=== PATIENT | female | born 1950 | race Caucasian/White ===

== ENCOUNTER 2016-12-28 15:29 | Emergency (ER) | payer MEDICARE, OTHER ==
--- NOTE | 2016-12-28 18:02 | REP ---
CT of the brain without IV contrast: There are no comparisons. The patients head is positioned asymmetrically in the scanning gantry. There is no subdural or epidural hematoma. There is no hemorrhage, edema, mass effect or midline shift. The cortical stripe is unremarkable. The ventricles and sulci are mildly enlarged compatible with mild diffuse volume loss. The visualized paranasal sinuses and mastoid air cells are clear. Impression: Essentially negative CT study of the brain except for mild diffuse volume loss. Signed by Felix Juarez MD 12/28/2016 05:54 P
--- NOTE | 2016-12-28 18:33 | EDDOCDS ---
Nurse's Notes [facility] Name: Shikha Del Rio Age: 66 yrs Sex: Female : 1950 Arrival Date: 12/28/2016 Time: 15:29 Bed TR8 Private MD: Rain Martinez Diagnosis: Unspecified injury of head Presentation: 12/28 15:35 Presenting complaint: Patient states: while at lunch and fell in parking lot. Cracked hs1 head on pavement. Patient states headache and pain in back of head. Adult Sepsis Screening: The patient does not have new or worsening altered mentation. Patient's respiratory rate is less than 22. Systolic blood pressure is greater than 100. Patient has a qSOFA score of 0- Negative Sepsis Screen. Suicide/Homicide risk assessment- the patient denies having any suicidal and/or homicidal ideations and does not present with any other emotional, behavioral or mental health complaints. Status: Patient is not a service parts coordinator or dependent. Transition of care: patient was not received from another setting of care. 15:35 Acuity: BEKAH Level 4 hs1 15:35 Method Of Arrival: Walkin/Carried/Asstd hs1 Triage Assessment: 15:37 General: Appears in no apparent distress, Behavior is appropriate for age, cooperative. hs1 Pain: Location: scalp Pain currently is 5 out of 10 on a pain scale. Musculoskeletal: Range of motion intact in all extremities. Historical: - Allergies: no known allergies; - Home Meds: 1. none - PMHx: none; - PSHx: cyst removal from left breast; ; - Social history: Smoking status: Patient states was never smoker of tobacco. No barriers to communication noted, The patient speaks fluent Bermudian, Speaks appropriately for age. - Family history: Not pertinent. - : The pt / caregiver states he / she is not on anticoagulants. Home medication list is obtained from the patient. - Exposure Risk Screening:: None identified. Screenin:27 Screening information is obtained from the patient. Fall risk: No risks identified. mk4 Assistance ADL's: requires no assistance with activities of daily living. Abuse/DV Screen: The patient / caregiver reports he/she is: not in a situation that causes fear, pain or injury. Nutritional screening: No deficits noted. Advance Directives: Currently, there is no health care proxy. There is no active DNR order. There is no living will. There is no Power of Plant Sciences Professor. Advance directive information has not previously been placed in an [facility] medical record. home support is adequate. Assessment: 16:30 General: Appears in no apparent distress. Neurological: Level of Consciousness is mk4 Oriented to person, place, time, Speech is normal, Facial symmetry appears normal, Pupils are PERRLA. Respiratory: No deficits noted. Airway is patent Respiratory effort is even, unlabored. Derm: Skin is intact, is healthy with good turgor. 17:30 General: Appears in no apparent distress. mk4 18:26 Reassessment: Patient appears in no apparent distress at this time. Patient denies pain mk4 at this time. Patient states feeling better. General: Appears in no apparent distress. Neurological: Level of Consciousness is awake, alert, Oriented to person, place, time, Speech is normal, Facial symmetry appears normal, Pupils are. Vital Signs: 15:31 BP 168 / 79; Pulse 75; Resp 18; Temp 97.4; Pulse Ox 95% ; Weight 68.04 kg; Height 5 ft. elp 4 in. (162.56 cm); 18:19 BP 153 / 85; Pulse 69; Resp 18; Temp 96.8(O); Pulse Ox 97% on R/A; Pain 0/10; dem1 15:31 Body Mass Index 25.75 (68.04 kg, 162.56 cm) el Vitals: 15:31 Log In Time: December 28, 2016 at 15:21. el ED Course: 15:30 Patient visited by Pat Peña PCA. elp 15:30 Rain Martinez is Private Physician. elp 15:30 Patient moved to Waiting elp 15:32 Patient visited by Pat Peña PCA. elp 15:32 Patient moved to Pre RCE elp 15:36 Triage Initiated hs1 16:28 Patient moved to Triage 1 mk4 16:43 Patient visited by Annie Shelby RN. mk4 16:47 [facility]. ke 16:47 Patient visited by Kelvin Garrett FNP. ke 16:47 Patient visited by Kelvin Garrett FNP. ke 16:59 Patient moved to TR2 dem1 17:19 Patient visited by Kelvin Garrett FNP. ke 18:00 Patient visited by Kelvin Garrett FNP. ke 18:11 Rain Martinez is Referral Physician. ke 18:11 Patient moved to PR / 25 jam1 18:14 CT Head Without Contrast Returned. EDMS 18:19 Patient visited by Char Zambrano. dem1 18:21 Patient moved to TR8 dem1 18:27 The patient / caregiver is instructed regarding the plan of care and ED course. mk4 18:28 No IV's were initiated during this patient's visit. No procedures done that require mk4 assistance. Order Results: Radiology Order: CT Head Without Contrast Test: CT Head Without Contrast REASON FOR EXAMINATION: Trauma; CT of the brain without IV contrast:; ; There are no comparisons.; ; The patients head is positioned asymmetrically in the scanning gantry.; ; There is no subdural or epidural hematoma. There is no hemorrhage, edema, mass; effect or midline shift. The cortical stripe is unremarkable.; ; The ventricles and sulci are mildly enlarged compatible with mild diffuse volume; loss. The visualized paranasal sinuses and mastoid air cells are clear.; ; Impression:; ; Essentially negative CT study of the brain except for mild diffuse volume loss.; ; ; Signed by; Felix Juarez MD 12/28/2016 05:54 P; Outcome: 18:13 Discharge ordered by Provider. ke 18:28 Discharge Assessment: Patient awake, alert and oriented x 3. No cognitive and/or mk4 functional deficits noted. Patient verbalized understanding of disposition instructions. Patient awake and alert. Discharge Assessment: patient administered narcotics - no. The following High Risk Discharge criteria are identified: None. Condition: good Condition: stable. No special radiology studies were completed. Property sent home with patient. 18:33 Patient left the ED. mk4 Signatures: Dispatcher [employer] EDAL Aliza King, OVAL OR CIRCULAR GLASS CUTTER OVAL OR CIRCULAR GLASS CUTTER servando1 Kelvin Garrett FNP FNP ke Sherrill, Hannah, DARREN RN hs1 Char Zambrano dem1 Pat Peña, OVAL OR CIRCULAR GLASS CUTTER OVAL OR CIRCULAR GLASS CUTTER elp Annie Shelby RN RN mk4 MTDD
--- NOTE | 2016-12-28 18:33 | EDDOCDS ---
Physician Documentation [facility] Name: Shikha Del Rio Age: 66 yrs Sex: Female : 1950 Arrival Date: 12/28/2016 Time: 15:29 Bed TR8 Private MD: Rain Martinez Disposition: 12/28/16 18:13 Discharged to Home/Self Care. Impression: Unspecified injury of head. - Condition is Stable. - Discharge Instructions: Head Injury, Adult. - Medication Reconciliation, Local Pharmacy Hours form. - Follow up: Rain Martinez; When: As needed; Reason: Recheck today's complaints, Continuance of care. - Problem is new. - Symptoms have improved. Historical: - Allergies: no known allergies; - Home Meds: 1. none - PMHx: none; - PSHx: cyst removal from left breast; ; - Social history: Smoking status: Patient states was never smoker of tobacco. No barriers to communication noted, The patient speaks fluent Yoruba, Speaks appropriately for age. - Family history: Not pertinent. - : The pt / caregiver states he / she is not on anticoagulants. Home medication list is obtained from the patient. - Exposure Risk Screening:: None identified. Vital Signs: 12/28 15:31 BP 168 / 79; Pulse 75; Resp 18; Temp 97.4; Pulse Ox 95% ; Weight 68.04 kg / 150 lbs; elp Height 5 ft. 4 in. (162.56 cm); 18:19 BP 153 / 85; Pulse 69; Resp 18; Temp 96.8(O); Pulse Ox 97% on R/A; Pain 0/10; dem1 15:31 Body Mass Index 25.75 (68.04 kg, 162.56 cm) elp MDM: 16:53 CT Head Without Contrast Ordered. EDMS 18:26 Financial registration complete. zo Signatures: Dispatcher [employer] EDMS Kelvin Garrett, Jim Del Rosario Hannah, RN RN hs1 Annie Shelby RN RN mk4 MTDD
--- NOTE | 2016-12-30 19:34 | EDDOCDS ---
Physician Documentation [facility] Name: Shikha Del Rio Age: 66 yrs Sex: Female : 1950 Arrival Date: 12/28/2016 Time: 15:29 Bed TR8 Private MD: Rain Martinez Disposition: 12/28/16 18:13 Discharged to Home/Self Care. Impression: Unspecified injury of head. - Condition is Stable. - Discharge Instructions: Head Injury, Adult. - Medication Reconciliation, Local Pharmacy Hours form. - Follow up: Rain Martinez; When: As needed; Reason: Recheck today's complaints, Continuance of care. - Problem is new. - Symptoms have improved. Historical: - Allergies: no known allergies; - Home Meds: 1. none - PMHx: none; - PSHx: cyst removal from left breast; ; - Social history: Smoking status: Patient states was never smoker of tobacco. No barriers to communication noted, The patient speaks fluent Divehi, Speaks appropriately for age. - Family history: Not pertinent. - : The pt / caregiver states he / she is not on anticoagulants. Home medication list is obtained from the patient. - Exposure Risk Screening:: None identified. Vital Signs: 12/28 15:31 BP 168 / 79; Pulse 75; Resp 18; Temp 97.4; Pulse Ox 95% ; Weight 68.04 kg / 150 lbs; elp Height 5 ft. 4 in. (162.56 cm); 18:19 BP 153 / 85; Pulse 69; Resp 18; Temp 96.8(O); Pulse Ox 97% on R/A; Pain 0/10; dem1 15:31 Body Mass Index 25.75 (68.04 kg, 162.56 cm) elp MDM: 16:53 CT Head Without Contrast Ordered. EDMS 18:26 Financial registration complete. zo 19:09 [facility] Payment Agreement was scanned into [employer] and attached to record. zo 12/29 09:43 T-Sheet-- Draft Copy was scanned into [employer] and attached to record. gb Signatures: Dispatcher [employer] EDMS Deisy Arciniega, Reg Reg gb Kelvin Garrett, TUMBLING INSTRUCTOR TUMBLING INSTRUCTOR Jim Yusuf Hannah RN RN hs1 Annie Shelby RN RN mk4 The chart was reviewed and I authenticate all verbal orders and agree with the evaluation and treatment provided.Attachments: 12/28 19:09 [facility] Payment Agreement zo 12/29 09:43 T-Sheet-- Draft Copy gb Chart Complete MTDD
--- NOTE | 2016-12-30 19:34 | EDDOCDS ---
Nurse's Notes [facility] Name: Shikha Del Rio Age: 66 yrs Sex: Female : 1950 Arrival Date: 12/28/2016 Time: 15:29 Bed TR8 Private MD: Rain Martinez Diagnosis: Unspecified injury of head Presentation: 12/28 15:35 Presenting complaint: Patient states: while at lunch and fell in parking lot. Cracked hs1 head on pavement. Patient states headache and pain in back of head. Adult Sepsis Screening: The patient does not have new or worsening altered mentation. Patient's respiratory rate is less than 22. Systolic blood pressure is greater than 100. Patient has a qSOFA score of 0- Negative Sepsis Screen. Suicide/Homicide risk assessment- the patient denies having any suicidal and/or homicidal ideations and does not present with any other emotional, behavioral or mental health complaints. Status: Patient is not a telephone services sales representative or dependent. Transition of care: patient was not received from another setting of care. 15:35 Acuity: BEKAH Level 4 hs1 15:35 Method Of Arrival: Walkin/Carried/Asstd hs1 Triage Assessment: 15:37 General: Appears in no apparent distress, Behavior is appropriate for age, cooperative. hs1 Pain: Location: scalp Pain currently is 5 out of 10 on a pain scale. Musculoskeletal: Range of motion intact in all extremities. Historical: - Allergies: no known allergies; - Home Meds: 1. none - PMHx: none; - PSHx: cyst removal from left breast; ; - Social history: Smoking status: Patient states was never smoker of tobacco. No barriers to communication noted, The patient speaks fluent Norwegian, Speaks appropriately for age. - Family history: Not pertinent. - : The pt / caregiver states he / she is not on anticoagulants. Home medication list is obtained from the patient. - Exposure Risk Screening:: None identified. Screenin:27 Screening information is obtained from the patient. Fall risk: No risks identified. mk4 Assistance ADL's: requires no assistance with activities of daily living. Abuse/DV Screen: The patient / caregiver reports he/she is: not in a situation that causes fear, pain or injury. Nutritional screening: No deficits noted. Advance Directives: Currently, there is no health care proxy. There is no active DNR order. There is no living will. There is no Power of Steward/Stewardess Smoke Room. Advance directive information has not previously been placed in an [facility] medical record. home support is adequate. Assessment: 16:30 General: Appears in no apparent distress. Neurological: Level of Consciousness is mk4 Oriented to person, place, time, Speech is normal, Facial symmetry appears normal, Pupils are PERRLA. Respiratory: No deficits noted. Airway is patent Respiratory effort is even, unlabored. Derm: Skin is intact, is healthy with good turgor. 17:30 General: Appears in no apparent distress. mk4 18:26 Reassessment: Patient appears in no apparent distress at this time. Patient denies pain mk4 at this time. Patient states feeling better. General: Appears in no apparent distress. Neurological: Level of Consciousness is awake, alert, Oriented to person, place, time, Speech is normal, Facial symmetry appears normal, Pupils are. Vital Signs: 15:31 BP 168 / 79; Pulse 75; Resp 18; Temp 97.4; Pulse Ox 95% ; Weight 68.04 kg; Height 5 ft. elp 4 in. (162.56 cm); 18:19 BP 153 / 85; Pulse 69; Resp 18; Temp 96.8(O); Pulse Ox 97% on R/A; Pain 0/10; dem1 15:31 Body Mass Index 25.75 (68.04 kg, 162.56 cm) el Vitals: 15:31 Log In Time: December 28, 2016 at 15:21. el ED Course: 15:30 Patient visited by Pat Peña PCA. elp 15:30 Rani Martinez is Private Physician. elp 15:30 Patient moved to Waiting elp 15:32 Patient visited by Pat Peña PCA. elp 15:32 Patient moved to Pre RCE elp 15:36 Triage Initiated hs1 16:28 Patient moved to Triage 1 mk4 16:43 Patient visited by Annie Shelby RN. mk4 16:47 Kel[facility] FNP [facility]. ke 16:47 Patient visited by Kelvin Garrett FNP. ke 16:47 Patient visited by Kelvin Garrett FNP. ke 16:59 Patient moved to TR2 dem1 17:19 Patient visited by Kelvin Garrett FNP. ke 18:00 Patient visited by Kelvin Garrett FNP. ke 18:11 Rain Martinez is Referral Physician. ke 18:11 Patient moved to PR jam1 18:14 CT Head Without Contrast Returned. EDMS 18:19 Patient visited by Char Zambrano. dem1 18:21 Patient moved to TR8 dem1 18:27 The patient / caregiver is instructed regarding the plan of care and ED course. mk4 18:28 No IV's were initiated during this patient's visit. No procedures done that require mk4 assistance. 19:09 [facility] Payment Agreement was scanned into [employer] and attached to record. frank 02 09:43 T-Sheet-- Draft Copy was scanned into [employer] and attached to record. gb Order Results: Radiology Order: CT Head Without Contrast Test: CT Head Without Contrast REASON FOR EXAMINATION: Trauma; CT of the brain without IV contrast:; ; There are no comparisons.; ; The patients head is positioned asymmetrically in the scanning gantry.; ; There is no subdural or epidural hematoma. There is no hemorrhage, edema, mass; effect or midline shift. The cortical stripe is unremarkable.; ; The ventricles and sulci are mildly enlarged compatible with mild diffuse volume; loss. The visualized paranasal sinuses and mastoid air cells are clear.; ; Impression:; ; Essentially negative CT study of the brain except for mild diffuse volume loss.; ; ; Signed by; Felix Juarez MD 12/28/2016 05:54 P; Outcome: 12/28 18:13 Discharge ordered by Provider. ke 18:28 Discharge Assessment: Patient awake, alert and oriented x 3. No cognitive and/or mk4 functional deficits noted. Patient verbalized understanding of disposition instructions. Patient awake and alert. Discharge Assessment: patient administered narcotics - no. The following High Risk Discharge criteria are identified: None. Condition: good Condition: stable. No special radiology studies were completed. Property sent home with patient. 18:33 Patient left the ED. mk4 Signatures: Dispatcher [employer] EDMS Aliza King, SOFTWARE DEVELOPER MID LEVEL SOFTWARE DEVELOPER MID LEVEL jam1 Deisy Arciniega, Reg Reg gb Kelvin Garrett FNP FNP ke Olin, Zoeann zo Sherrill, Hannah, RN RN hs1 Char Zambrano1 Pat Peña, SOFTWARE DEVELOPER MID LEVEL SOFTWARE DEVELOPER MID LEVEL sanchezp Annie Shelby, RN RN mk4 Chart Complete MTDD
--- NOTE | 2016-12-30 19:34 | EDDOCDS ---
Physician Documentation [facility] Name: Shikha Del Rio Age: 66 yrs Sex: Female : 1950 Arrival Date: 12/28/2016 Time: 15:29 Bed TR8 Private MD: Rain Martinez Disposition: 12/28/16 18:13 Discharged to Home/Self Care. Impression: Unspecified injury of head. - Condition is Stable. - Discharge Instructions: Head Injury, Adult. - Medication Reconciliation, Local Pharmacy Hours form. - Follow up: Rain Martinez; When: As needed; Reason: Recheck today's complaints, Continuance of care. - Problem is new. - Symptoms have improved. Historical: - Allergies: no known allergies; - Home Meds: 1. none - PMHx: none; - PSHx: cyst removal from left breast; ; - Social history: Smoking status: Patient states was never smoker of tobacco. No barriers to communication noted, The patient speaks fluent Welsh, Speaks appropriately for age. - Family history: Not pertinent. - : The pt / caregiver states he / she is not on anticoagulants. Home medication list is obtained from the patient. - Exposure Risk Screening:: None identified. Vital Signs: 12/28 15:31 BP 168 / 79; Pulse 75; Resp 18; Temp 97.4; Pulse Ox 95% ; Weight 68.04 kg / 150 lbs; elp Height 5 ft. 4 in. (162.56 cm); 18:19 BP 153 / 85; Pulse 69; Resp 18; Temp 96.8(O); Pulse Ox 97% on R/A; Pain 0/10; dem1 15:31 Body Mass Index 25.75 (68.04 kg, 162.56 cm) elp MDM: 16:53 CT Head Without Contrast Ordered. EDMS 18:26 Financial registration complete. zo 19:09 [facility] Payment Agreement was scanned into [employer] and attached to record. zo 12/29 09:43 T-Sheet-- Draft Copy was scanned into [employer] and attached to record. gb Signatures: Dispatcher [employer] EDMS Deisy Arciniega, Reg Reg gb Kelvin Garrett, RV REPAIR TECHNICIAN RV REPAIR TECHNICIAN Jim Yusuf Hannah RN RN hs1 Annie Shelby RN RN mk4 The chart was reviewed and I authenticate all verbal orders and agree with the evaluation and treatment provided.Attachments: 12/28 19:09 [facility] Payment Agreement zo 12/29 09:43 T-Sheet-- Draft Copy gb Chart Complete MTDD
== END 2016-12-28 18:33 | disposition home or self-care (01) ==
LOC: M ED 15:29
DX: S00.03XA Contusion of scalp, initial encounter (principal); W01.10XA Fall on same level from slipping, tripping and stumbling with subsequent striking against unspecified object, initial encounter; Y92.481 Parking lot as the place of occurrence of the external cause; Y93.01 Activity, walking, marching and hiking; Y99.8 Other external cause status

== ENCOUNTER → 2021-12-03 | Outpatient (CLI) | payer MEDICARE, OTHER | LOC: M WHC 12:13 | PROVIDERS: ATTEND Nurse Practitioner Adult Health | DX: Z12.31 Encounter for screening mammogram for malignant neoplasm of breast (principal) ==

== ENCOUNTER → 2022-04-12 | Outpatient (REF) | payer MEDICARE, OTHER | LOC: M LAB REF 16:06 | PROVIDERS: ATTEND Registered Nurse | DX: N39.0 Urinary tract infection, site not specified (principal) ==

== ENCOUNTER → 2022-06-16 | Outpatient (CLI) | payer MEDICARE, OTHER ==
[~2022-06-16] MED LIST: LATA0.0015; ROSU5TAB5; SUPRSOL2
== END ==
LOC: M LABSMTC 09:37
PROVIDERS: ATTEND Anesthesiology
DX: Z01.812 Encounter for preprocedural laboratory examination (principal); Z20.822 Contact with and (suspected) exposure to COVID-19

== ENCOUNTER 2022-06-21 06:28 | Day surgery (SDC) | payer MEDICARE, OTHER ==
[~2022-06-21] VITALS: Ht 170.2 cm; Wt 73.4 kg
[~2022-06-21 06:28] MED LIST changes: +NS 1,000 ML IV ONE
[2022-06-21] MEDS ORDERED: propofoL 200 MG/20 ML VIAL As Ordered ONE ×2 (07:40→07:45)
[2022-06-21] MEDS ORDERED: LIDOCAINE 2% 100MG/5ML SDV (FOR ANES.) As Ordered ONE (07:42)
[2022-06-21 08:10] VITALS: BP 133/65
== END 2022-06-21 08:22 | disposition home or self-care (01) ==
LOC: M OPP 06:28
PROVIDERS: ATTEND Internal Medicine Gastroenterology
DX: Z12.11 Encounter for screening for malignant neoplasm of colon (principal); Z86.010 Personal history of colon polyps; K57.30 Diverticulosis of large intestine without perforation or abscess without bleeding; K64.0 First degree hemorrhoids; Z79.02 Long term (current) use of antithrombotics/antiplatelets; Z79.899 Other long term (current) drug therapy

== ENCOUNTER 2023-04-30 09:29 | Emergency (ER) | payer MEDICARE, OTHER ==
[~2023-04-30] VITALS: Ht 170.2 cm; Wt 72.8 kg
[~2023-04-30 09:29] MED LIST changes: -NS 1,000 ML IV ONE
[2023-04-30] MEDS ORDERED: FLUO1OPD (09:45)
[2023-04-30] MEDS ORDERED: KETO10TAB (09:45)
[2023-04-30] MEDS ORDERED: METF-838 (09:45)
[2023-04-30] MEDS ORDERED: CARI250T (09:45)
[2023-04-30] MEDS ORDERED: KETOROLAC 60MG 2ML VIAL IM ONE (11:15)
[2023-04-30] MEDS ORDERED: NEUR300C PO (12:34)
[2023-04-30] MEDS ORDERED: GABAPENTIN 300 MG CAP PO ONE (12:35)
[2023-04-30 12:40] VITALS: BP 167/99; TEMP 98.8; O2SAT 98
== END 2023-04-30 12:55 | disposition home or self-care (01) ==
LOC: M ED 09:29
DX: M51.26 Other intervertebral disc displacement, lumbar region (principal); G54.4 Lumbosacral root disorders, not elsewhere classified; E11.9 Type 2 diabetes mellitus without complications; Z79.899 Other long term (current) drug therapy; Z79.84 Long term (current) use of oral hypoglycemic drugs
CPT/HCPCS: 72131; 96372; 99283; J1885

== ENCOUNTER → 2024-02-24 | Outpatient (CLI) | payer MEDICARE, OTHER ==
[~2024-02-24] MED LIST changes: +CARI250T; +FLUO1OPD; +KETO10TAB; +METF-838; +NEUR300C PO
== END ==
LOC: M WHC 14:00
PROVIDERS: ATTEND Nurse Practitioner Family
DX: Z12.31 Encounter for screening mammogram for malignant neoplasm of breast (principal)

== ENCOUNTER → 2025-06-26 | Outpatient (CLI) | payer MEDICARE, OTHER ==
[~2025-06-26] MED LIST changes: +ROSU5TAB49; -ROSU5TAB5
== END ==
LOC: M WHC 14:21
PROVIDERS: ATTEND Nurse Practitioner Family
DX: Z12.31 Encounter for screening mammogram for malignant neoplasm of breast (principal); M85.851 Other specified disorders of bone density and structure, right thigh; R92.323 Mammographic fibroglandular density, bilateral breasts; M85.852 Other specified disorders of bone density and structure, left thigh